=== PATIENT | female | born 2000 | race Caucasian/White ===

== ENCOUNTER 2025-03-30 18:53 | Emergency (ER) | payer BC ==
[~2025-03-30] VITALS: Ht 162.6 cm; Wt 99.5 kg
[2025-03-30 18:55] VITALS: BP 143/75; PULSE 104; RESP 18; TEMP 98.4; O2SAT 98
[2025-03-30] MEDS ORDERED: GABA-1181 PO (18:59)
[2025-03-30] MEDS ORDERED: HYDR-4808 PO (20:00)
== END 2025-03-30 20:20 | disposition home or self-care (01) ==
LOC: EMS 18:57
DX: M62.838 Other muscle spasm (principal); R55 Syncope and collapse; F41.9 Anxiety disorder, unspecified; F32.A Depression, unspecified; Z79.899 Other long term (current) drug therapy; Z88.0 Allergy status to penicillin
CPT/HCPCS: 99283; Z7502